=== PATIENT | female | born 1985 | race Asian ===

== ENCOUNTER 2017-07-07 15:28 | Inpatient (IN) | payer OTHER ==
[~2017-07-07] VITALS: Ht 160 cm; Wt 66.7 kg
[2017-07-07] MEDS: LACTATED RINGERS 1,000 ML IV SCH (03:00)
[2017-07-07] MEDS ORDERED: PREN-380 PO (15:58)
[2017-07-07] MEDS ORDERED: PROMETHAZINE 25 MG/ML VIAL IVP PRN (16:05)
[2017-07-07] MEDS ORDERED: METHYLERGONOVINE 0.2 MG/ML AMP IM PRN (16:05)
[2017-07-07] MEDS ORDERED: OXYTOCIN 10 UNITS/ML VIAL IM SCH (16:05)
[2017-07-07] MEDS ORDERED: CARBOPROST 250 MCG/ML AMP IM PRN (16:05)
[2017-07-07] MEDS ORDERED: NALBUPHINE HYDROCHLORIDE 10 MG/ML VIAL IVP PRN (16:05)
[2017-07-07 16:22] VITALS: BP 96/68
[2017-07-07 17:02] LABS: BASOPHILS % (AUTO) 0.5 % (0.0-2.0); EOSINOPHILS # (AUTO) 0.1 K/uL (0-0.4); EOSINOPHILS % (AUTO) 2.4 % (0.0-4.0); HEMATOCRIT 38.3 % (36-48); HEMOGLOBIN 12.7 g/dL (12.0-16.0); LYMPHOCYTES # (AUTO) 1.3 K/uL (2.5-16.5); LYMPHOCYTES % (AUTO) 21.6 % (20.5-51.1); MEAN CORPUSCULAR HEMOGLOBIN 31 pg (27-31); MEAN CORPUSCULAR HGB CONC 33 g/dL (33-37); MONOCYTES # (AUTO) 0.7 K/uL (0.8-1.0); NEUTROPHILS # (AUTO) 3.7 K/uL (1.8-7.7); NEUTROPHILS % (AUTO) 63.5 % (42.2-75.2); PLATELET COUNT (AUTO) 129 K/uL (140-450); RED BLOOD CELL COUNT(AUTO) 4.17 MIL/uL (4.20-5.40); RED CELL DISTRIBUTION WIDTH 13.9 % (11.6-13.7); WHITE BLOOD COUNT (AUTO) 5.8 K/uL (4.8-10.8)
[2017-07-07] MEDS ORDERED: MISOPROSTOL 25 MCG TAB ONE ×2 (17:05→22:30)
[2017-07-07 17:06] LABS: BILIRUBIN,URINE NEGATIVE (NEGATIVE); BLOOD, URINE NEGATIVE (NEGATIVE); LEUKOCYTE ESTERASE ,URINE NEGATIVE (NEGATIVE); NITRITE, URINE NEGATIVE (NEGATIVE); UGLUCOSE NEGATIVE (NEGATIVE)
[2017-07-07 17:09] LABS: APPEARANCE,URINE S (CLEAR); COLOR,URINE C (YELLOW)
[2017-07-07] MEDS ORDERED: MISOPROSTOL 25 MCG TAB VG SCH (18:00)
[2017-07-07 18:41] LABS: CARBON DIOXIDE 21.8 mmol/L (21-32); CREATININE 0.6 mg/dL (0.6-1.3); POTASSIUM 3.8 mmol/L (3.5-5.1)
[2017-07-07 18:46] LABS: TOTAL BILIRUBIN 0.2 mg/dL (0.0-1.0)
[2017-07-08] MEDS: LACTATED RINGERS 1,000 ML IV SCH ×5 (04:00→20:40)
[2017-07-08] MEDS ORDERED: BUPIVACAINE 0.125%/NS PREMIX 250 ML ONE (06:01)
[2017-07-08] MEDS ORDERED: OXYTOCIN 20 UNITS in LACTATED RINGERS 1,000 ML IV SCH (08:00)
--- NOTE | 2017-07-08 10:30 | NUR ---
PATIENT HAS BEEN SCREENED AND CATEGORIZED LOW NUTRITION RISK. PATIENT WILL BE SEEN WITHIN 7 DAYS OF ADMISSION. 07/14/[address]
[2017-07-08] MEDS ORDERED: TERBUTALINE 1 MG/ML VIAL SUBQ ONE (12:55)
[2017-07-08] MEDS ORDERED: AMPICILLIN 2,000 MG in NACL 0.9% 100 ML IV ONE (14:00)
[2017-07-08] MEDS ORDERED: AMPICILLIN 2,000 MG VIAL ONE (14:09)
[2017-07-08] MEDS ORDERED: AMPICILLIN 1,000 MG VIAL ONE ×2 (17:50→21:44)
[2017-07-08] MEDS: AMPICILLIN 1,000 MG in NACL 0.9% 50 ML IV SCH ×2 (17:54→21:55)
[2017-07-09] MEDS ORDERED: OXYTOCIN 10 UNITS/ML VIAL ONE (01:34)
[2017-07-09] MEDS ORDERED: HYDROcodone/APAP 5/325 MG 1 TAB TAB PO PRN (01:55)
[2017-07-09] MEDS ORDERED: MEASLES, MUMPS, AND RUBELLA 1 VIAL SQVAC PRN (01:55)
[2017-07-09] MEDS ORDERED: oxyCODONE/APAP 5/325 MG 1 TAB TAB PO PRN (01:55)
[2017-07-09] MEDS ORDERED: TEMAZEPAM 15 MG CAP PO PRN (01:55)
[2017-07-09] MEDS ORDERED: BENZOCAINE/MENTHOL 20%-0.5% 60 GM CAN TP PRN (01:55)
[2017-07-09] MEDS ORDERED: METHYLERGONOVINE 0.2 MG/ML AMP IM PRN (01:55)
[2017-07-09] MEDS ORDERED: OXYTOCIN 10 UNITS/ML VIAL IM PRN (01:55)
[2017-07-09] MEDS ORDERED: HYDROcodone/APAP 5/325 MG 1 TAB TAB ONE (05:30)
[2017-07-09] MEDS: IBUPROFEN 800 MG TAB PO PRN (20:18)
[2017-07-09] MEDS ORDERED: DOCUSATE SOD/SENNA 50/8.6 MG 1 TAB PO SCH (21:00)
[2017-07-10] MEDS: IBUPROFEN 800 MG TAB PO PRN ×2 (02:10→12:58)
[2017-07-10 06:21] LABS: HEMATOCRIT 32.2 % (36-48); HEMOGLOBIN 10.9 g/dL (12.0-16.0)
== END 2017-07-10 14:00 | disposition home or self-care (01) | DRG 775 ==
LOC: MLD 15:28 → MFCC 07-09 04:00
PROVIDERS: ADMIT Obstetrics & Gynecology; ATTEND Obstetrics & Gynecology
PROC: 10D07Z6 Extraction of Products of Conception, Vacuum, Via Natural or Artificial Opening (ICD-10-PCS; principal; 2017-07-07)
PROC: 10907ZC Drainage of Amniotic Fluid, Therapeutic from Products of Conception, Via Natural or Artificial Opening (ICD-10-PCS; 2017-07-07)
PROC: 3E033VJ Introduction of Other Hormone into Peripheral Vein, Percutaneous Approach (ICD-10-PCS; 2017-07-07)
PROC: 0W8NXZZ Division of Female Perineum, External Approach (ICD-10-PCS; 2017-07-07)
PROC: 00HU33Z Insertion of Infusion Device into Spinal Canal, Percutaneous Approach (ICD-10-PCS; 2017-07-07)
PROC: 3E0R3BZ Introduction of Anesthetic Agent into Spinal Canal, Percutaneous Approach (ICD-10-PCS; 2017-07-09)
DX: O69.89X0 Labor and delivery complicated by other cord complications, not applicable or unspecified (principal); Z37.0 Single live birth; Z3A.40 40 weeks gestation of pregnancy
CPT/HCPCS: 36415; 51702; 59200; 80053; 81003; 85018; 85025; 86592; 86886; 86900; 86901; 90715; J0290; J2590; J3105; J3490; J7120